=== PATIENT | male | born 1995 | race Caucasian/White ===

== ENCOUNTER 2018-02-24 14:08 | Emergency (ER) | payer BC ==
[~2018-02-24] VITALS: Ht 182.9 cm; Wt 68.2 kg
[2018-02-24 14:15] VITALS: TEMP 36.8; Ht 182.9 cm; Wt 68.2 kg
--- NOTE | 2018-02-24 15:07 | DIAGNOSTIC IMAGING REPORT ---
NASAL BONES MIN 3 VIEWS CLINICAL HISTORY: Nasal injury. COMPARISON STUDY: No previous studies for comparison. FINDINGS: No nasal bone fractures are identified by radiography. No fractures are identified within visualized portions of the facial bones by radiography. Lucencies within the nasal bone suggests sutures. IMPRESSION: No nasal bone fracture identified by radiography. Electronically signed by: Micah Bryan M.D. 02/24/2018 3:06 PM Dictated Date/Time: 02/24/2018 3:04 PM
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
[2018-02-24 15:41] VITALS: BP 87/75; PULSE 62; O2SAT 99
== END 2018-02-24 15:42 | disposition home or self-care (01) ==
LOC: C.EDB 14:10 → C.EDD 15:42
DX: S00.33XA Contusion of nose, initial encounter (principal); W50.0XXA Accidental hit or strike by another person, initial encounter; H02.846 Edema of left eye, unspecified eyelid